=== PATIENT | female | born 1970 | race Caucasian/White ===

== ENCOUNTER 2016-11-15 06:04 | Day surgery (SDC) | payer BC, OTHER ==
[~2016-11-15] VITALS: Ht 170.2 cm; Wt 63.0 kg
[2016-11-15] MEDS ORDERED: FENTANYL PF 100 MCG/2ML ONE ×2 (06:38→08:41)
[2016-11-15] MEDS ORDERED: MIDAZOLAM 1 MG/ML, 2ML ONE (06:38)
[2016-11-15 06:57] VITALS: BP 126/83
[2016-11-15] MEDS ORDERED: SILVER NITRATE STICK TP ONE (07:06)
[2016-11-15] MEDS ORDERED: BUPIVACAINE/PF-EPI 0.25% 1:200K ONE (07:06)
[2016-11-15] MEDS ORDERED: FLUT9.9S NAS (07:16)
[2016-11-15] MEDS ORDERED: PANT40TA3 PO (07:16)
[2016-11-15] MEDS ORDERED: LACT1CAP35 PO (07:16)
[2016-11-15] MEDS ORDERED: FEXO-64 PO (07:16)
[2016-11-15] MEDS ORDERED: PENT100C2 PO (07:16)
[2016-11-15] MEDS ORDERED: METH1TAB2 PO (07:16)
[2016-11-15] MEDS ORDERED: ZOLP-413 PO (07:16)
[2016-11-15] MEDS ORDERED: CHOL5000 PO (07:16)
[2016-11-15] MEDS ORDERED: PROG100C4 PO (07:16)
[2016-11-15] MEDS ORDERED: LIDOCAINE 1%, 2ML ONE (07:18)
[2016-11-15] MEDS ORDERED: SCOPOLAMINE PATCH, 1.5MG PATCH.TD72 TD ONE (07:23)
[2016-11-15] MEDS ORDERED: ONDANSETRON 2MG/ML, 2ML IVPush PRN (07:30)
[2016-11-15] MEDS ORDERED: OXYcodone 5 MG/5 ML ORAL.SOL UDC PO PRN (07:30)
[2016-11-15] MEDS ORDERED: PROMETHAZINE 25 MG/ML, 1ML IV PRN (07:30)
[2016-11-15] MEDS ORDERED: HYDROmorphone 1 MG/ML, 1ML IV PRN (07:30)
[2016-11-15] MEDS ORDERED: METOCLOPRAMIDE 5 MG/ML, 2ML IV PRN (07:30)
[2016-11-15 07:39] LABS: HEMOGLOBIN 13.9 g/dL (11.7-16.4)
[2016-11-15 08:15] LABS: HCG UR OBC PASS
[2016-11-15] MEDS ORDERED: ACETAMINOPHEN 325 MG TABLET ONE (08:41)
[2016-11-15] MEDS ORDERED: OXYcodone 5 MG/5 ML ORAL.SOL UDC ONE (08:41)
[2016-11-15] MEDS: FENTANYL PF 100 MCG/2ML IV PRN ×2 (08:43→08:59)
[2016-11-15] MEDS ORDERED: ACETAMINOPHEN 325 MG TABLET PO PRN (09:00)
[2016-11-15] MEDS ORDERED: ONDANSETRON 2MG/ML, 2ML ONE ×2 (09:35→16:15)
[2016-11-15] MEDS ORDERED: METOCLOPRAMIDE 5 MG/ML, 2ML ONE (09:56)
[2016-11-15] MEDS ORDERED: KETOROLAC 30 MG/1 ML ONE (16:15)
[2016-11-15] MEDS ORDERED: DEXAMETHASONE 4 MG/ML, 1ML ONE ×2 (16:15)
[2016-11-15] MEDS ORDERED: PROPOFOL 10 MG/ML, 20ML ONE (16:15)
== END 2016-11-15 13:45 | disposition home or self-care (01) ==
LOC: OUT 06:04
PROVIDERS: ATTEND Obstetrics & Gynecology
DX: N92.0 Excessive and frequent menstruation with regular cycle (principal); N94.6 Dysmenorrhea, unspecified; G43.909 Migraine, unspecified, not intractable, without status migrainosus; K21.9 Gastro-esophageal reflux disease without esophagitis; Z87.442 Personal history of urinary calculi; Z98.51 Tubal ligation status; D64.9 Anemia, unspecified
CPT/HCPCS: 36415; 58563; 81025; 85025; 86850; 86900; J1100; J1885; J2250; J2405; J2704; J2765; J3010